=== PATIENT | female | born 1965 | race Two or more races ===

== ENCOUNTER 2018-09-18 10:58 | Outpatient (CLI) | payer MEDICAID ==
[2018-09-18] MEDS ORDERED: LISI-170 PO (11:28)
[2018-09-18] MEDS ORDERED: PRAV10TA2 PO (11:28)
[2018-09-18] MEDS ORDERED: FENO48TA5 PO (11:28)
[2018-09-18] MEDS ORDERED: GLUC15006 PO (11:28)
[2018-09-18] MEDS ORDERED: LYSI500T25 PO (11:28)
[2018-09-18] MEDS ORDERED: TRAZ50TA66 PO (11:28)
== END 2018-09-18 23:59 | disposition home or self-care (01) ==
LOC: STAR 10:58
PROVIDERS: ATTEND Orthopaedic Surgery
DX: Z02.9 Encounter for administrative examinations, unspecified (principal)

== ENCOUNTER 2018-09-22 08:39 | Day surgery (SDC) | payer MEDICAID ==
[~2018-09-22] VITALS: Ht 157.5 cm; Wt 91.2 kg
[~2018-09-22 08:39] MED LIST: FENO48TA5 PO; GLUC15006 PO; LIDOCAINE 1%, 20ML ONE; LISI-170 PO; LYSI500T25 PO; PRAV10TA2 PO; TRAZ50TA66 PO
[2018-09-22] MEDS ORDERED: LACTATED RINGERS 1,000 ML IV SCH (09:08)
[2018-09-22] MEDS ORDERED: MIDAZOLAM 1 MG/ML, 2ML ONE (09:22)
[2018-09-22] MEDS ORDERED: FENTANYL PF 100 MCG/2ML ONE ×2 (09:22→13:14)
[2018-09-22] MEDS ORDERED: ACETAMINOPHEN 500 MG TABLET PO ONE (09:30)
[2018-09-22] MEDS ORDERED: GABAPENTIN 300 MG CAPSULE PO ONE (09:30)
[2018-09-22] MEDS ORDERED: SCOPOLAMINE PATCH, 1.5MG PATCH.TD72 TD ONE (09:30)
[2018-09-22 09:42] VITALS: BP 122/86
[2018-09-22] MEDS ORDERED: PHENYLEPHRINE 10 MG/ML ONE (10:18)
[2018-09-22] MEDS ORDERED: ROCURONIUM 10MG/ML,5ML ONE (10:18)
[2018-09-22] MEDS ORDERED: KETOROLAC 30 MG/1 ML ONE (10:18)
[2018-09-22] MEDS ORDERED: EPHEDRINE 50 MG/ML, 1ML ONE (10:18)
[2018-09-22] MEDS ORDERED: CLINDAMYCIN 150 MG/ML, 6ML ONE (10:30)
[2018-09-22] MEDS ORDERED: LIDOCAINE-MPF 2% ,5ML ONE (10:48)
[2018-09-22] MEDS ORDERED: BUPIVACAINE/PF 0.25% ONE (10:48)
[2018-09-22] MEDS ORDERED: DEXAMETHASONE 4 MG/ML, 1ML ONE (10:50)
[2018-09-22] MEDS ORDERED: SUCCINYLCHOLINE 20 MG/ML, 10ML ONE (10:50)
[2018-09-22] MEDS ORDERED: ONDANSETRON 2MG/ML, 2ML ONE (10:50)
[2018-09-22] MEDS ORDERED: CEFAZOLIN 1,000 MG ONE (10:50)
[2018-09-22] MEDS ORDERED: PROPOFOL 10 MG/ML, 20ML ONE (10:50)
[2018-09-22] MEDS ORDERED: ALBUTEROL/IPRATROPIUM 2.5MG/0.5MG, 3 ML NPPB PRN (11:00)
[2018-09-22] MEDS ORDERED: FENTANYL PF 100 MCG/2ML IV PRN (11:00)
[2018-09-22] MEDS ORDERED: MIDAZOLAM 1 MG/ML, 2ML IV PRN (11:00)
[2018-09-22] MEDS ORDERED: ONDANSETRON 2MG/ML, 2ML IV PRN (11:00)
[2018-09-22] MEDS ORDERED: MEPERIDINE/PF 25MG/0.5ML IVPush PRN (11:00)
[2018-09-22] MEDS ORDERED: OXYcodone 5 MG/5 ML ORAL.SOL UDC PO PRN (11:00)
[2018-09-22] MEDS ORDERED: hydrALAzine 20 MG/ML, 1ML IV PRN (11:00)
[2018-09-22] MEDS ORDERED: PROMETHAZINE 25 MG/ML, 1ML ONE (13:06)
[2018-09-22] MEDS: PROMETHAZINE 25 MG/ML, 1ML IV PRN ×2 (13:10→13:29)
[2018-09-22] MEDS ORDERED: HYDROmorphone 2 MG/ML, 1ML ONE (13:14)
[2018-09-22] MEDS ORDERED: HYDROmorphone 2 MG/ML, 1ML IVPush PRN (13:30)
[2018-09-22] MEDS ORDERED: OXYcodone/APAP 5/325MG TABLET PO PRN (15:30)
== END 2018-09-22 17:45 | disposition home or self-care (01) ==
LOC: OR 08:39
PROVIDERS: ATTEND Orthopaedic Surgery
DX: S46.011A Strain of muscle(s) and tendon(s) of the rotator cuff of right shoulder, initial encounter (principal); S43.431A Superior glenoid labrum lesion of right shoulder, initial encounter; S46.111A Strain of muscle, fascia and tendon of long head of biceps, right arm, initial encounter; M25.811 Other specified joint disorders, right shoulder; M75.21 Bicipital tendinitis, right shoulder; M65.811 Other synovitis and tenosynovitis, right shoulder; I10 Essential (primary) hypertension; E78.5 Hyperlipidemia, unspecified; F32.9 Major depressive disorder, single episode, unspecified; G47.00 Insomnia, unspecified; E66.9 Obesity, unspecified; Z68.38 Body mass index [BMI] 38.0-38.9, adult; Z87.891 Personal history of nicotine dependence; Z79.899 Other long term (current) drug therapy; Z78.0 Asymptomatic menopausal state; Z98.51 Tubal ligation status; Z98.890 Other specified postprocedural states; Z82.61 Family history of arthritis; Z82.49 Family history of ischemic heart disease and other diseases of the circulatory system; Z80.41 Family history of malignant neoplasm of ovary; X58.XXXA Exposure to other specified factors, initial encounter; Y93.89 Activity, other specified; Y92.89 Other specified places as the place of occurrence of the external cause; Y99.8 Other external cause status
CPT/HCPCS: 23430; 29823; 29826; 29827; 64415; C1713; J0330; J0690; J1100; J1170; J1885; J2250; J2370; J2405; J2550; J2704; J3010; J3490; J7120